=== PATIENT | female | born 1985 | race Caucasian/White ===

== ENCOUNTER 2018-04-15 07:11 | Emergency (ER) | payer BC, OTHER ==
[2018-04-15 07:17] VITALS: BP 120/71; PULSE 78; RESP 18; TEMP 98.2
--- NOTE | 2018-04-15 07:37 | ED ---
General Adult HPI - General Chief complaint: Dental/Oral Stated complaint: Facial Swelling Time Seen by Provider: 04/15/18 07:24 Source: patient, RN notes reviewed Mode of arrival: ambulatory Limitations: no limitations - History of Present Illness Initial comments: Patient 32-year-old female presenting to the emergency room today with a chief complaint of possible dental abscess. Patient does admit that 2 days ago she noticed some swelling to the right cheek area. Patient states that it is common larger in the last day. She started antibiotics she's had 3 doses of amoxicillin. Patient denies any foul taste or drainage. Denies any other complaints or symptoms. Patient denies any recent fever, chills, shortness of breath, chest pain, back pain, abdominal pain, nausea or vomiting, numbness or tingling, dysuria or hematuria, constipation or diarrhea, headaches or visual changes, or any other complaints. - Related Data Previous Rx's Medication Instructions Recorded Clindamycin HCl 300 mg PO Q6H #40 cap 04/15/18 Allergies Allergy/AdvReac Type Severity Reaction Status Date / Time bee venom protein (honey bee) Allergy Swelling Verified 04/15/18 07:18 meloxicam [From Mobic] AdvReac Nausea & Verified 04/15/18 07:18 Vomiting Review of Systems ROS Statement: Those systems with pertinent positive or pertinent negative responses have been documented in the HPI. ROS Other: All systems not noted in ROS Statement are negative. Past Medical History Past Medical History: No Reported History Additional Past Medical History / Comment(s): pleursy History of Any Multi-Drug Resistant Organisms: None Reported Past Surgical History: No Surgical Hx Reported Past Psychological History: Anxiety Smoking Status: Never smoker Past Alcohol Use History: Occasional Past Drug Use History: None Reported General Exam - General Exam Comments Initial Comments: General: The patient is awake and alert, in no distress, and does not appear acutely ill. Eye: Pupils are equal, round and reactive to light, extra-ocular movements are intact. No nystagmus. There is normal conjunctiva bilaterally. No signs of icterus. Ears, nose, mouth and throat: There are moist mucous membranes and no oral lesions. Patient does have some mild to moderate swelling to the right cheek area. There is no fluctuant area or abscess head. No dental abscess on exam to drain. Neck: The neck is supple, there is no tenderness or JVD. Musculoskeletal: Normal ROM, no tenderness. Strength 5/5. Sensation intact. Neurological: A&O x 3. CN II-XII intact, There are no obvious motor or sensory deficits. Coordination appears grossly intact. Speech is normal. Skin: Skin is warm and dry and no rashes or lesions are noted. Psychiatric: Cooperative, appropriate mood & affect, normal judgment. Limitations: no limitations Course Vital Signs 04/15/18 07:13 Temperature 98.2 F Pulse Rate 78 Respiratory 18 Rate Blood Pressure 120/71 O2 Sat by Pulse 99 Oximetry Medical Decision Making - Medical Decision Making Patient will be given a antibiotic clindamycin" over is advised continue with amoxicillin followed up with dentist over the next 2 days. Advised warm compresses and placing a tea bag in the cheek area to help pull out any drainage. Advised return if symptoms increase worsen. Disposition Clinical Impression: Dental abscess Disposition: HOME SELF-CARE Condition: Good Instructions: Dental Abscess (ED) Additional Instructions: Please use medication as discussed. Please follow-up with dentist over the next 2 days as discussed. Please return to emergency room if the symptoms increase or worsen or for any other concerns. Prescriptions: Clindamycin HCl 300 mg PO Q6H #40 cap Is patient prescribed a controlled substance at d/c from ED?: No Referrals: Asaf Mcneill MD [Primary Care Provider] - 1-2 days Time of Disposition: 07:35
== END 2018-04-15 08:05 | disposition home or self-care (01) ==
LOC: EC 07:11
DX: K04.7 Periapical abscess without sinus (principal); Z91.030 Bee allergy status; Z88.6 Allergy status to analgesic agent
CPT/HCPCS: 99283

== ENCOUNTER → 2020-10-07 | Outpatient (CLI) | payer BC ==
[2020-10-07 09:51] LABS: Basophils % (A) 0 %; Eosinophils # (A) 0.1 k/uL (0-0.7); Eosinophils % (A) 2 %; HCT 43.5 % (34.0-46.0); Lymphocytes # (A) 1.5 k/uL (1.0-4.8); Lymphocytes % (A) 26 %; MCHC 32.3 g/dL (31.0-37.0); MCV 96.2 fL (80.0-100.0); Mean Platelet Volume 7.3; Monocytes # (A) 0.3 k/uL (0-1.0); Monocytes % (A) 4 %; Neutrophils # (A) 3.8 k/uL (1.3-7.7); Neutrophils % (A) 66 %; Platelet Count 214 k/uL (150-450); RBC 4.52 m/uL (3.80-5.40); RDW 12.7 % (11.5-15.5); WBC 5.9 k/uL (3.8-10.6)
[2020-10-07 09:59] LABS: Cholesterol 157 mg/dL (<200); HDL Cholesterol 61 mg/dL (40-60); LDL Cholesterol,Calculated 88 mg/dL (0-99); Triglycerides 39 mg/dL (<150)
[2020-10-07 10:07] LABS: ALT 16 U/L (4-34); AST 19 U/L (14-36); African American GFR (CKD) >90 (>60 ml/min/1.73 sqM); Albumin 3.7 g/dL (3.5-5.0); Alkaline Phosphatase 37 U/L (38-126); Anion Gap 2 mmol/L; Blood Urea Nitrogen 9 mg/dL (7-17); Calcium 8.9 mg/dL (8.4-10.2); Carbon Dioxide 29 mmol/L (22-30); Chloride 105 mmol/L (98-107); Glucose 92 mg/dL (74-99); Non-African American GFR(CKD) >90 (>60 ml/min/1.73 sqM); Potassium 4.3 mmol/L (3.5-5.1); Sodium 136 mmol/L (137-145); Total Bilirubin 0.5 mg/dL (0.2-1.3); Total Protein 5.9 g/dL (6.3-8.2)
--- NOTE | 2020-10-07 10:08 | US ---
EXAMINATION TYPE: US pelvic complete DATE OF EXAM: 10/07/2020 COMPARISON: Pelvic ultrasound August 18, 2015 CLINICAL HISTORY: R10.2 Pelvic pain. LLQ Pain TECHNIQUE: Transabdominal (TA). Transabdominal sonographic images of the pelvis were acquired. EXAM MEASUREMENTS: Uterus: 8.9 x 4.0 x 5.4 cm Endometrial Stripe: .5 cm Right Ovary: 2.8 x 2.1 x 2.3 cm Left Ovary: 3.6 x 2.8 x 3.1 cm 1. Uterus: Anteverted wnl 2. Endometrium: wnl IUD visualized 3. Right Ovary: wnl 4. Left Ovary: Cystic area 1.7 x 1.7 x 2.0 cm. 5. Bilateral Adnexa: wnl 6. Posterior cul-de-sac: wnl Anteverted uterus redemonstrated. IMPRESSION: No suspicious adnexal masses. No acute findings are evident.
[2020-10-07 17:49] LABS: Hemoglobin A1C 4.3 % (4.0-6.0)
== END | disposition home or self-care (01) ==
LOC: RADUSWWP 09:02
PROVIDERS: ATTEND Family Medicine
DX: R10.2 Pelvic and perineal pain (principal); Z00.00 Encounter for general adult medical examination without abnormal findings
CPT/HCPCS: 76856; 80053; 80061; 83036; 84443; 85025

== ENCOUNTER → 2020-10-19 | Outpatient (CLI) | payer BC ==
--- NOTE | 2020-10-19 11:33 | MR ---
EXAMINATION TYPE: MR lumbar spine wo con DATE OF EXAM: 10/19/2020 COMPARISON: None HISTORY: Chronic low back pain TECHNIQUE: Multiplanar, multisequence images of the lumbar spine were acquired. L1-L2: Normal disc appearance without desiccation. No herniation, protrusion or disc bulging. No ca nal stenosis is present. Foramina are patent bilaterally. L2-L3: Normal disc appearance without desiccation. No herniation, protrusion or disc bulging. No ca nal stenosis is present. Foramina are patent bilaterally. L3-L4: Normal disc appearance without desiccation. No herniation, protrusion or disc bulging. No ca nal stenosis is present. Foramina are patent bilaterally. L4-L5: Normal disc appearance without desiccation. No herniation, protrusion or disc bulging. No ca nal stenosis is present. Foramina are patent bilaterally. L5-S1: Normal disc appearance without desiccation. No herniation, protrusion or disc bulging. No ca nal stenosis is present. Foramina are patent bilaterally. There is some facet arthropathy change. Palencia spect synovial cyst posterior to the facet on the left. Lumbar segments are intact. No paraspinal masses are identified. Conus medullaris has a normal appe arance. Lumbar vertebral bodies show preserved height and alignment. Disc spaces are maintained. Umbi lical hernia contains fat. IMPRESSION: There is some facet arthropathy change. No evident disc herniation.
== END | disposition home or self-care (01) ==
LOC: RADMRIMAIN 10:31
PROVIDERS: ATTEND Family Medicine
DX: M47.16 Other spondylosis with myelopathy, lumbar region (principal)
CPT/HCPCS: 72148